=== PATIENT | male | born 1975 | race Caucasian/White ===

== ENCOUNTER 2019-11-02 05:45 | Day surgery (SDC) | payer OTHER ==
[2019-11-01 11:27] LABS: BASOPHILS 0.1 % (0-2); EOSINOPHILS 3.8 % (0-7); HEMATOCRIT 42.4 % (42.0-54.0); IMMATURE GRANULOCYTES 0.3 % (0-5); LYMPHOCYTES 24.8 % (15-50); MCH 28.3 pg (26.0-34.0); MCV 85.7 fL (80.0-100.0); MEAN PLATELET VOLUME 8.9 fL (7.4-10.4); MONOCYTES 7.5 % (2-11); NEUTROPHILS 63.5 % (40-80); PLATELET COUNT 219 10x3/uL (130-400); RBC 4.95 10x6/uL (4.20-6.10); RDW 13.1 % (11.5-14.5); WBC 7.7 10x3/uL (4.8-10.8)
[2019-11-01 11:32] LABS: CALC OSMOLALITY 278 mosm/kg (275-300); CALCIUM 8.7 mg/dL (8.5-10.1); CARBON DIOXIDE 31.2 mmol/L (21.0-32.0); CHLORIDE - SERUM 103 mmol/L (98-107); GLUCOSE 106 mg/dL (74-106); POTASSIUM - SERUM 3.2 mmol/L (3.5-5.1); SODIUM 138 mmol/L (136-145); UREA NITROGEN 20 mg/dL (7-18); eGFR NON AFRICAN AMERICAN 85 mL/min (90-120)
[~2019-11-02] VITALS: Ht 182.9 cm; Wt 120.2 kg
--- NOTE | ~2019-11-02 | OP ---
PATIENT NAME: NESTOR LAMAS MEDICAL RECORD: [id number] :71 LOCATION:[facility] ADMISSION DATE: SURGEON: TRES STEEN MD DATE OF OPERATION: 11/02/2019 PREOPERATIVE DIAGNOSES: 1. Left inguinal hernia. 2. Left groin lipoma. 3. Hypertension. 4. Asthma. 5. Obesity with a BMI of 36. POSTOPERATIVE DIAGNOSES: 1. Left inguinal hernia. 2. Left groin lipoma. 3. Hypertension. 4. Asthma. 5. Obesity with a BMI of 36. PROCEDURE: 1. Left inguinal hernia repair with extended PHS mesh. 2. Excision of 2 cm left groin lipoma. SURGEON: Tres Steen MD REPORT OF PROCEDURE: The patient's left groin was prepped and draped in sterile fashion. On the lateral aspect of the left hip, there was a subcutaneous fatty mass present. An oblique incision was made overlying this and using electrocautery, we dissected out a 2 cm lipoma. There was no sign of any other masses or lesions present. We irrigated out this wound and then reapproximated the subcutaneous tissues with an interrupted 3-0 Vicryl and the skin was closed with running subcutaneous 5-0 Monocryl. We then approached the left groin. An oblique incision was made above the inguinal ligament. Electrocautery was used to dissect through the subcutaneous tissues down to the external oblique fascia. This fascia was opened up to the external ring using electrocautery. The patient had a large hernia defect extending down to the patient's testicle. The patient did have a hydrocele as well. We opened up the hydrocele sac and resected this. The patient's testicle appeared normal. Inside the hydrocele sac, there was a firm mass present that almost looked like a prasanth. This was sent off for permanent specimen. The patient's hernia sac was then dissected from the surrounding tissues. A [place] has been placed around the patient's spermatic cord, we were able to localize the spermatic cord and keep these structures safe throughout the procedure. Once we had the hernia sac resected, he was noted to be in indirect hernia defect. We were able to free up this hernia sac and push it back into the abdominal cavity. The patient did have a cord lipoma associated with this and this was high ligated with a 3-0 silk tie. There was a small direct hernia defect that was forming. We went ahead and opened up the inguinal floor and opened up the preperitoneal space of Retz[place]. We inserted an extended PHS mesh and sutured down the superior aspect of this mesh on all 4 sides using multiple interrupted 0 Vicryls. The patient's ilioinguinal nerve had been found and high ligated. We irrigated out the wound with normal saline and assured there was no sign of any bleeding. The external oblique fascia was closed with running 2-0 Vicryl, Clyde's was closed with interrupted 3-0 Vicryl and the skin was closed with running subcutaneous 5-0 Monocryl. A total of 10 mL of 0.25% Marcaine with epinephrine was infused into OPERATIVE REPORT [id number] NESTOR LAMAS the surrounding tissues and the wounds were dressed appropriately. COMPLICATIONS: None. CONDITION: Stable. ANESTHESIA: General endotracheal and local. BLOOD LOSS: Minimal. TRANSINT:[id number] Voice Confirmation ID: [id number] DOCUMENT ID: [id number] TRES STEEN MD CC: CLARE FLORIAN MD [id number] DICTATION DATE: 11/02/19915 INFANT AND TODDLER TEACHER: 11/02/19 1003 [facility] [address] [id number]
[~2019-11-02 05:45] MED LIST: BYSTOLIC10 MG PO; HYDROCHLOROTHIA25 MG PO
[2019-11-02] MEDS ORDERED: GLUCOSAMINE HC500 MG PO (05:52)
[2019-11-02 06:40] VITALS: BP 118/72; Ht 182.9 cm; Wt 120.2 kg
[2019-11-02] MEDS ORDERED: HYDROCODON-ACE1 EA10 PO (09:11)
--- NOTE | 2019-11-02 11:23 | NUR ---
1046 MEDICATED FOR PAIN. SMALL AMT OF DRAINAGE ON DRESSING TO LEFT SIDE. ICE PACK APPLIED. TOLERATING LIQ
--- NOTE | 2019-11-02 11:24 | NUR ---
125 INSTRUCTED PT ON INSTRUCTIONS AND DRESSING REINFOIRCED. HX OF SLEEP APNEA AND INSTRUCTED TO WEAR SLEEP APNEA
--- NOTE | 2019-11-02 13:52 | NUR ---
1046 MEDICATED 1200 ON ROOM AIR 1250 VOIDED 1255 IV REMOVED 1310 PT D/C HOME
--- NOTE | 2019-11-02 19:05 | NUR ---
1310 PAIN 06/21. PT VOIDED PRIOR TO D/C.
== END 2019-11-02 13:10 | disposition home or self-care (01) ==
LOC: D.PAN 05:45 → D.OPS 08:00 → D.PAN 08:00
PROVIDERS: ATTEND Surgery
DX: K40.90 Unilateral inguinal hernia, without obstruction or gangrene, not specified as recurrent (principal); D17.20 Benign lipomatous neoplasm of skin and subcutaneous tissue of unspecified limb; I10 Essential (primary) hypertension; J45.909 Unspecified asthma, uncomplicated; E66.9 Obesity, unspecified; Z68.36 Body mass index [BMI] 36.0-36.9, adult

== ENCOUNTER 2020-09-02 04:19 | Observation (INO) | payer OTHER ==
[~2020-09-02] VITALS: Ht 182.9 cm; Wt 118.2 kg
[~2020-09-02 04:19] MED LIST changes: +GLUCOSAMINE HC500 MG PO; +HYDROCODON-ACE1 EA10 PO
[2020-09-02 04:22] VITALS: Ht 182.9 cm; Wt 118.2 kg
[2020-09-02 05:14] VITALS: BP 118/90
--- NOTE | 2020-09-02 05:20 | NUR ---
DR HOFFMANN PAGED [phone] FOR CONSULT
--- NOTE | 2020-09-02 08:26 | NUR ---
0800 DR. HOFFMANN CALLED FOR ORDERS. STATES PT WAS ADMITTED & ORDERS MUST COME FROM THEM. Vita GONZALEZ R.N. 0810 DR. SIVAKUMAR SANTILLAN' NURSE PAGED. CALL RETURNED. ORDERS RECEIVED FOR REGULAR DIET. STATES DR. SHAVER MUST SEE PATIENT BEFORE PATIENT IS DISCHARGED. FIRE ENGINE PUMP OPERATOR UPDATED. PT CONTINUES TO SLEEP. Vita GONZALEZ R.N.
[2020-09-02] MEDS ORDERED: OMEPRAZOLE20 M1 PO (09:15)
--- NOTE | 2020-09-02 09:16 | NUR ---
[address] SHAVER. Vita GONZALEZ R.N. 0915 IV DC'ED WITH CATH INTACT. PRESSURE TO SITE. NO BLEEDING. DRESSING. Vita GONZALEZ R.N.
== END 2020-09-02 09:27 | disposition home or self-care (01) ==
LOC: D.ER 04:19 → D.EDHOLD 05:32 → OBSVTIME 05:36 → D.EDHOLD 09:27
PROVIDERS: ADMIT Emergency Medicine; ATTEND Emergency Medicine
DX: T18.128A Food in esophagus causing other injury, initial encounter (principal); J45.909 Unspecified asthma, uncomplicated; I10 Essential (primary) hypertension; R06.81 Apnea, not elsewhere classified; R13.10 Dysphagia, unspecified; K20.90 Esophagitis, unspecified without bleeding; K29.70 Gastritis, unspecified, without bleeding